=== PATIENT | male | born 1980 | race American Indian/Alaskan Native ===

== ENCOUNTER 2018-02-13 08:43 | Emergency (ER) | payer BC, OTHER ==
[2018-02-13 08:46] VITALS: BMI 30.5
[2018-02-13 08:51] VITALS: RESP 16; TEMP 98
--- NOTE | 2018-02-13 09:16 | ED PDOC ---
Arrival/HPI - General Chief Complaint: Abdominal Pain Historian: Patient - History of Present Illness Narrative History of Present Illness (Text): 02/13/18 09:13 37 y/o male, pmh including appendicitis, surgical history including appendectomy, nkda, c/o periumbilical pain on and off x 2 weeks with no fall or trauma. Aching pain, aggravated by touching, no nausea or vomiting, no fever or chills, eating and drinking well, concerning for hernia?, no night sweat, no dizziness, on change in vision, no rash, no other medical or psychological complaints. Past Medical History - Provider Review Nursing Documentation Reviewed: Yes - Infectious Disease Hx of Infectious Diseases: None - Psychiatric Hx Substance Use: No - Surgical History Hx Appendectomy: Yes Family/Social History - Physician Review Nursing Documentation Reviewed: Yes Family/Social History: Unknown Family HX Smoking Status: Never Smoked Hx Alcohol Use: Yes Frequency of alcohol use: Socially Hx Substance Use: No Allergies/Home Meds Allergies/Adverse Reactions: Allergies No Known Allergies Allergy (Unverified 02/13/18 09:11) Review of Systems - Review of Systems Constitutional: absent: Fatigue, Fevers Eyes: absent: Vision Changes ENT: absent: Hearing Changes Respiratory: absent: SOB, Cough Cardiovascular: absent: Chest Pain Gastrointestinal: Abdominal Pain. absent: Diarrhea, Nausea, Vomiting Skin: absent: Rash, Pruritis Neurological: absent: Headache, Dizziness Psychiatric: absent: Anxiety, Depression Physical Exam Vital Signs Reviewed: Yes Vital Signs Temp Pulse Resp BP Pulse Ox 02/13/18 08:46 98.0 F 58 L 16 141/90 99 Temperature: Afebrile Blood Pressure: Normal Pulse: Bradycardic Respiratory Rate: Normal Appearance: Positive for: Well-Appearing, Non-Toxic, Comfortable Pain Distress: Mild Mental Status: Positive for: Alert and Oriented X 3 - Systems Exam Head: Present: Atraumatic, Normocephalic Pupils: Present: PERRL Extroacular Muscles: Present: EOMI Conjunctiva: Present: Normal Mouth: Present: Moist Mucous Membranes Neck: Present: Normal Range of Motion Respiratory/Chest: Present: Clear to Auscultation, Good Air Exchange. No: R espiratory Distress, Accessory Muscle Use Cardiovascular: Present: Regular Rate and Rhythm, Normal S1, S2. No: Murmurs Abdomen: Present: Tenderness (mild periumbilical), Normal Bowel Sounds, Scars. No: Distention, Peritoneal Signs, Rebound, Guarding, McBurney's Point Tender, Rovsing's Sign Present Back: Present: Normal Inspection Upper Extremity: Present: Normal Inspection. No: Cyanosis, Edema Lower Extremity: Present: Normal Inspection. No: Edema Neurological: Present: GCS=15, CN II-XII Intact, Speech Normal Skin: Present: Warm, Dry, Normal Color. No: Rashes Psychiatric: Present: Alert, Oriented x 3, Normal Insight, Normal Concentration Medical Decision Making ED Course and Treatment: 02/13/18 09:15 -Labs -CT abdomen and pelvis -IV pepcid -observe and reassess 02/13/18 11:21 -EKG: NSR @ 65 BPM, no ST elevation or depression, T wave inversion lead III. -CT abdomen and pelvis show Minimal fat containing umbilical hernia. -Labs show no acute findings -Mg show no acute findings -Lipase show no acute findings. -UA show no UTI -Pt. feels well with no more pain, all labs and radiology results explained, he is tolerating po solid and fluid, able to have bowel movement. -Discharge home with tylenol/pepcid, stay hydrated, follow up with your own pmd and GI/General surgeon within 2 days, return to the ER for any new or worsening signs or symptoms. - RAD Interpretation Radiology Orders: 02/13/18 09:12 ABD & PELVIS IV CONTRAST ONLY [CT] Stat -CT abdomen and pelvis Date of service: 02/13/2018 PROCEDURE: CT Abdomen and Pelvis with and without intravenous contrast HISTORY: periumbilical pain x 2 weeks, appendectomy,hernia? COMPARISON: None. TECHNIQUE: Axial images of the abdomen were obtained in the pre contrast, portal venous and delayed phases of enhancement. Coronal and sagittal reformats were generated. Contrast dose: Radiation dose: Total exam DLP = 565.49 mGy-cm. This CT exam was performed using one or more of the following dose reduction techniques: Automated exposure control, adjustment of the mA and/or kV according to patient size, and/or use of iterative reconstruction technique. FINDINGS: LOWER THORAX: Unremarkable. LIVER: Unremarkable. No gross lesion or ductal dilatation. GALLBLADDER AND BILE DUCTS: Unremarkable. PANCREAS: Unremarkable. No gross lesion or ductal dilatation. SPLEEN: Unremarkable. ADRENALS: Unremarkable. No mass. KIDNEYS AND URETERS: Unremarkable. No hydronephrosis. No solid mass. VASCULATURE: Unremarkable. No aortic aneurysm. No aortic atherosclerotic calcification or mural plaque present. BOWEL: Unremarkable. No obstruction. No gross mural thickening. APPENDIX: Appendectomy. PERITONEUM: Unremarkable. No free fluid. No free air. LYMPH NODES: Unremarkable. No enlarged lymph nodes. BLADDER: Unremarkable. REPRODUCTIVE: Unremarkable. BONES: No acute fracture. OTHER FINDINGS: Minimal fat containing umbilical hernia. IMPRESSION: Minimal fat containing umbilical hernia. Stoper: Radiologist - EKG Interpretation EKG Interpretation (Text): 02/13/18 10:16 -EKG: NSR @ 65 BPM, no ST elevation or depression, T wave inversion lead III. Interpreted by ED Physician: Yes Type: 12 lead EKG - PA / SHOOK SPLICER / Resident Statement MD/DO has reviewed & agrees with the documentation as recorded. Disposition/Present on Arrival - Present on Arrival Any Indicators Present on Arrival: No History of DVT/PE: No History of Uncontrolled Diabetes: No Urinary Catheter: No History of Decub. Ulcer: No History Surgical Site Infection Following: None - Disposition Have Diagnosis and Disposition been Completed?: Yes Diagnosis: Umbilical hernia Disposition: HOME/ ROUTINE Disposition Time: 11:23 Patient Plan: Discharge Condition: IMPROVED Additional Instructions: -Discharge home with tylenol/pepcid, stay hydrated, follow up with your own pmd and GI/General surgeon within 2 days, return to the ER for any new or worsening signs or symptoms. Prescriptions: Acetaminophen [Acetaminophen Extra Strength] 500 mg PO QID PRN #30 tablet PRN Reason: Other Famotidine [Pepcid] 20 mg PO BID PRN #20 tab PRN Reason: Other Referrals: Flaco Mata MD [Medical Doctor] - Follow up with primary [facility] [place] - Follow up with primary Forms: [employer] (Swedish), WORK NOTE
[2018-02-13 09:44] LABS: BASO # 0.02 K/mm3 (0.0-2.0); BASO % 0.3 % (0.0-3.0); EOS # 0.1 (0.0-0.7); EOS % 1.6 % (1.5-5.0); GRAN # 5.06 (1.4-6.5); GRAN % 65.9 % (50.0-68.0); HEMOGLOBIN 13.3 g/dL (14.0-18.0); LYMPH % 26.2 % (22.0-35.0); MEAN CELL VOLUME 86.8 fl (80.0-105.0); MEAN CORPUSCULAR HEMOGLOBIN 29.2 pg (25.0-35.0); MEAN CORPUSCULAR HGB CONC 33.7 g/dl (31.0-37.0); MEAN PLATELET VOLUME 9.4 fl (7.0-11.0); MONO # 0.5 (0.1-0.6); RBC 4.55 10^6/uL (3.5-6.1); RED CELL DISTRIBUTION WIDTH 13.9 % (11.5-14.5); WHITE BLOOD COUNT 7.7 10^3/uL (4.5-11.0)
[2018-02-13 09:52] LABS: ALB/GLOB RATIO 1.4 (1.1-1.8); ALBUMIN 4.2 g/dL (3.0-4.8); ALT/SGPT 40 U/L (7-56); AST/SGOT 27 U/L (17-59); BLOOD UREA NITROGEN 12 mg/dL (7-21); CALCIUM 9.3 mg/dL (8.4-10.5); GFR NON-AFRICAN AMERICAN > 60; LIPASE 73 U/L (23-300)
[2018-02-13 10:41] LABS: URINE BILIRUBIN NEGATIVE (NEGATIVE); URINE BLOOD NEGATIVE (NEGATIVE); URINE GLUCOSE (UA) NEGATIVE (NEGATIVE); URINE LEUKOCYTE ESTERASE NEGATIVE Leu/uL (NEGATIVE); URINE PROTEIN NEGATIVE mg/dL (<30 mg/dL); URINE UROBILINOGEN 0.2 E.U./dL (<1 E.U./dL)
[2018-02-13 10:43] LABS: URINE APPEARANCE CLEAR (CLEAR); URINE COLOR YELLOW (YELLOW)
[2018-02-13 10:47] VITALS: BP 133/87; PULSE 75; O2SAT 100
--- NOTE | 2018-02-13 11:12 | CT ---
Date of service: 02/13/2018 PROCEDURE: CT Abdomen and Pelvis with and without intravenous contrast HISTORY: periumbilical pain x 2 weeks, appendectomy,hernia? COMPARISON: None. TECHNIQUE: Axial images of the abdomen were obtained in the pre contrast, portal venous and delayed phases of enhancement. Coronal and sagittal reformats were generated. Contrast dose: Radiation dose: Total exam DLP = 565.49 mGy-cm. This CT exam was performed using one or more of the following dose reduction techniques: Automated exposure control, adjustment of the mA and/or kV according to patient size, and/or use of iterative reconstruction technique. FINDINGS: LOWER THORAX: Unremarkable. LIVER: Unremarkable. No gross lesion or ductal dilatation. GALLBLADDER AND BILE DUCTS: Unremarkable. PANCREAS: Unremarkable. No gross lesion or ductal dilatation. SPLEEN: Unremarkable. ADRENALS: Unremarkable. No mass. KIDNEYS AND URETERS: Unremarkable. No hydronephrosis. No solid mass. VASCULATURE: Unremarkable. No aortic aneurysm. No aortic atherosclerotic calcification or mural plaque present. BOWEL: Unremarkable. No obstruction. No gross mural thickening. APPENDIX: Appendectomy. PERITONEUM: Unremarkable. No free fluid. No free air. LYMPH NODES: Unremarkable. No enlarged lymph nodes. BLADDER: Unremarkable. REPRODUCTIVE: Unremarkable. BONES: No acute fracture. OTHER FINDINGS: Minimal fat containing umbilical hernia. IMPRESSION: Minimal fat containing umbilical hernia.
--- NOTE | 2018-02-13 19:24 | CARD ---
APPROVED REPORT Date of service: 02/13/2018 EKG Measurement Heart [id number] <Conclusion> Poor data quality, interpretation may be adversely affected Normal sinus rhythm with sinus arrhythmia Minimal voltage criteria for LVH, may be normal variant Borderline ECG
== END 2018-02-13 11:43 | disposition home or self-care (01) ==
LOC: ED 08:43
DX: K42.9 Umbilical hernia without obstruction or gangrene (principal)
CPT/HCPCS: 74177; 80053; 81003; 83690; 83735; 85025; 93005; 96374; 99283; Q9967